=== PATIENT | female | born 1960 | race Caucasian/White ===

== ENCOUNTER 2020-01-13 14:13 | Emergency (ER) | payer BC, OTHER ==
[~2020-01-13] VITALS: Ht 172.7 cm; Wt 72.7 kg
[~2020-01-13 14:13] MED LIST: LEVAQUIN 5500 MG/TA1 PO; MULTIPLE VITAMI1 CAP PO; NORCO 325 MG-51 TA1 PO
[2020-01-13 14:26] VITALS: BP 128/91; TEMP 99
[2020-01-13 15:49] VITALS: PULSE 100
== END 2020-01-13 15:49 | disposition home or self-care (01) ==
LOC: COL.ER 14:13
DX: S80.12XA Contusion of left lower leg, initial encounter (principal); I83.92 Asymptomatic varicose veins of left lower extremity; X58.XXXA Exposure to other specified factors, initial encounter

== ENCOUNTER → 2020-02-14 | Outpatient (CLI) | payer BC, OTHER | LOC: COL.VAS 08:03 | DX: I83.11 Varicose veins of right lower extremity with inflammation (principal) ==

== ENCOUNTER → 2020-06-09 | Outpatient (CLI) | payer BC, OTHER | LOC: ZCOL.LAB 18:05 | DX: Z20.828 Contact with and (suspected) exposure to other viral communicable diseases (principal) ==